=== PATIENT | male | born 1955 | race Caucasian/White ===

== ENCOUNTER 2019-01-16 17:58 | Emergency (ER) | payer OTHER ==
[~2019-01-16] VITALS: Ht 170.2 cm; Wt 69.4 kg
[2019-01-16] MEDS ORDERED: TENORMIN50 MG PO (18:13)
[2019-01-16] MEDS ORDERED: PROVENTIL HFA6.7 GM INH (19:01)
[2019-01-16] MEDS ORDERED: CIPRO HC OTIC S10 ML AS (19:01)
== END 2019-01-16 19:21 | disposition home or self-care (01) ==
LOC: ED 17:58
DX: H60.92 Unspecified otitis externa, left ear (principal); J44.0 Chronic obstructive pulmonary disease with (acute) lower respiratory infection; J20.9 Acute bronchitis, unspecified; F17.210 Nicotine dependence, cigarettes, uncomplicated; Z79.899 Other long term (current) drug therapy
CPT/HCPCS: 99282

== ENCOUNTER 2019-03-08 14:34 | Emergency (ER) | payer OTHER ==
[~2019-03-08] VITALS: Ht 170.2 cm; Wt 70.9 kg
[~2019-03-08 14:34] MED LIST: CIPRO HC OTIC S10 ML AS; PROVENTIL HFA6.7 GM INH; TENORMIN50 MG PO
[2019-03-08] MEDS ORDERED: ATENOLOL50 MG PO (15:30)
== END 2019-03-08 15:39 | disposition home or self-care (01) ==
LOC: ED 14:34
DX: I10 Essential (primary) hypertension (principal); J44.9 Chronic obstructive pulmonary disease, unspecified; F17.200 Nicotine dependence, unspecified, uncomplicated; Z79.899 Other long term (current) drug therapy
CPT/HCPCS: 99281

== ENCOUNTER 2019-04-03 18:53 | Emergency (ER) | payer OTHER ==
[~2019-04-03] VITALS: Ht 170.2 cm; Wt 70.8 kg
[~2019-04-03 18:53] MED LIST changes: +ATENOLOL50 MG PO
--- OUTSIDE RECORDS SUMMARY | 2019-04-03 18:56 | XMS ---
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 Care History Medical/Surgical 03/13/2019 [facility] - CHW RECEIVED- CASE MANAGEMENT CONSULT- HELP PATIENT WITH PCP SET UP. - CHW CONTACTED PATIENT- PATIENT FILLED OUT ESTRELLITA FORM WITH [facility]. - RECORDS RECEIVED ON 03/10/19- CURRENTLY WAITING ON REVIEW FROM DR LOJA TO ESTABLISH CARE. - CLINIC WILL CONTACT PATIENT WITH APT TIME AND DATE ONCE REVIEW IS COMPLETE. E.DTaniya VISIT COUNT (12 [address] 3 [facility] TOTAL 3 NOTE: Visits indicate total known visits. ED/UCC VISIT TRACKING (12 MO.) 04/03/2019 18:53 [facility] TYPE: Emergency COMPLAINT: - VOMITING BLOOD 03/08/2019 14:34 [facility] TYPE: Emergency COMPLAINT: - BLOOD PRESSURE PROBLEM DIAGNOSES: - Essential (primary) hypertension - Other skilled nursing (current) drug therapy - Encounter for issue of repeat prescription - Nicotine dependence, unspecified, uncomplicated - Chronic obstructive pulmonary disease, unspecified 01/16/2019 17:59 [facility] [place] TYPE: Emergency COMPLAINT: - L EAR PAIN,DIFFICULTY BREATHING DIAGNOSES: - Otalgia, left ear - Acute bronchitis, unspecified - Chronic obstructive pulmonary disease with acute lower respiratory infection - Nicotine dependence, cigarettes, uncomplicated - Unspecified otitis externa, left ear - Other oil heaterman (current) drug therapy INPATIENT VISIT TRACKING (12 MO.) No inpatient visits to display in this time frame [id number]
[2019-04-03] MEDS ORDERED: ATENOLOL50 MG PO (20:40)
== END 2019-04-03 20:47 | disposition home or self-care (01) ==
LOC: ED 18:53
DX: K92.0 Hematemesis (principal); I10 Essential (primary) hypertension; F17.200 Nicotine dependence, unspecified, uncomplicated; Z79.899 Other long term (current) drug therapy
CPT/HCPCS: 85025; 99284

== ENCOUNTER 2020-02-20 06:03 | Emergency (ER) | payer MEDICARE, OTHER ==
[~2020-02-20] VITALS: Ht 170.2 cm; Wt 69.4 kg
--- OUTSIDE RECORDS SUMMARY | 2020-02-20 06:08 | XMS ---
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 Care History Medical/Surgical 11/13/2019 [facility] - Patient is currently established with [facility]. If patient is seen in the ED during business hours. Please contact CHWs at [facility]. Care Recommendation: If this patient has had 5 or more Emergency Department visits in the last 12 months.\T\nbsp; Patient will require education on the scope and purpose of the ED as an acute care provider not a Primary Care Provider and should not be utilized for chronic conditions.\T\nbsp; These are guidelines and the provider should exercise clinical judgment when providing care. 04/04/2019 [facility] - PATIENT HAS AN APT TO ESTABLISH CARE WITH DR DE LOS SANTOS ON 04/25/19. 03/13/2019 [facility] - CHW RECEIVED- CASE MANAGEMENT CONSULT- HELP PATIENT WITH PCP SET UP. - CHW CONTACTED PATIENT- PATIENT FILLED OUT ESTRELLITA FORM WITH [facility]. - RECORDS RECEIVED ON 03/10/19- CURRENTLY WAITING ON REVIEW FROM DR LOJA TO ESTABLISH CARE. - CLINIC WILL CONTACT PATIENT WITH APT TIME AND DATE ONCE REVIEW IS COMPLETE. E.D. VISIT COUNT (12 MO.) [address] [facility] TOTAL 4 NOTE: Visits indicate total known visits. ED/UCC VISIT TRACKING (12 MO.) 02/20/2020 06:05 [facility] [place] TYPE: Emergency COMPLAINT: - CHEST PAIN/WEAKNESS 11/11/2019 07:12 [facility] [place] TYPE: Emergency COMPLAINT: - INTOXICATION DIAGNOSES: - Nicotine dependence, unspecified, uncomplicated - Other residential (current) drug therapy - Alcohol abuse with intoxication, unspecified - Chronic obstructive pulmonary disease, unspecified 04/03/2019 18:53 [facility] TYPE: Emergency COMPLAINT: - VOMITING BLOOD DIAGNOSES: - Other residential (current) drug therapy - Essential (primary) hypertension - Hematemesis - Nicotine dependence, unspecified, uncomplicated 03/08/2019 14:34 [facility] TYPE: Emergency COMPLAINT: - BLOOD PRESSURE PROBLEM DIAGNOSES: - Essential (primary) hypertension - Other residential (current) drug therapy - Encounter for issue of repeat prescription - Nicotine dependence, unspecified, uncomplicated - Chronic obstructive pulmonary disease, unspecified INPATIENT VISIT TRACKING (12 MO.) No inpatient visits to display in this time frame [id number]
[2020-02-20] MEDS ORDERED: PRILOSEC10 M1 PO (06:16)
[2020-02-20] MEDS ORDERED: CHLORDIAZEPOXID25 MG PO (07:47)
[2020-02-20] MEDS ORDERED: ONDANSETRON ODT8 MG PO (07:47)
--- NOTE | 2020-02-20 12:01 | EKG ---
[facility] [address] [facility] [place] [address] Signed Normal sinus rhythm Normal ECG No previous ECGs available Confirmed by RICHARD LOJA MD ([id number]) on 02/20/2020 12:00:57 PM Electronically Signed By: RICHARD LOJA MD 02/20/20 1201 PATIENT NAME: ANGELICA MUNOZ Electrocardiogram DATE OF : 59 PHYSICIAN: RICHARD LOJA MD REPORT #: [id number] REPORT IS CONFIDENTIAL AND NOT TO BE RELEASED WITHOUT AUTHORIZATION
== END 2020-02-20 10:18 | disposition home or self-care (01) ==
LOC: ED 06:03
DX: R55 Syncope and collapse (principal); F10.10 Alcohol abuse, uncomplicated; R20.2 Paresthesia of skin; J44.9 Chronic obstructive pulmonary disease, unspecified; I10 Essential (primary) hypertension; F17.200 Nicotine dependence, unspecified, uncomplicated
CPT/HCPCS: 71045; 80053; 84484; 85025; 93005; 93010; 96365; 96366; 96375; 99284-25; G0480; J2060; J3411; J7030

== ENCOUNTER 2021-12-09 21:00 | Inpatient (IN) | payer MEDICARE, OTHER ==
[~2021-12-09] VITALS: Ht 170.2 cm; Wt 70.0 kg
[~2021-12-09 21:00] MED LIST changes: +CHLORDIAZEPOXID25 MG PO; +ONDANSETRON ODT8 MG PO; +PRILOSEC10 M1 PO
--- NOTE | 2021-12-10 | NUR ---
PATIENT ASSESSMENT COMPLETE. PATIENT ALERT AND ORIENTED X4. HARD OF HEARING. CIWA COMPLETE. SCORE OF 4. LUNG SOUNDS ARE COURSE IN THE UPPER LOBES AND DIMINISHED IN BASES. PATIENT ON 4 LITERS OF OXYGEN. RR IS 18-25. OXYGEN SATURATIONS BETWEEN 90-98%. BREATHING EQUAL AND UNLABORED. HEART RATE 70-80 BPM. SINUS RHYTHM. AFEBRILE. URINE IS YELLOW AND CONCENTRATED. NO BM. BOWEL TONES ACTIVE. PATIENT COMPLAINS OF NUMBNESS & TINGLING IN LOWER EXTERMITIES. SKIN INTACT. IV SITES PATENT. REMDESIVIR RUNNING AT 500 MLS/HR. NO QUESTIONS AT THIS TIME. CALL LIGHT WITHIN REACH. NO FUTHER NEEDS.
--- NOTE | 2021-12-10 01:35 | NUR ---
IV PUMP ALARMING, THIS RN IN. PT LAYING IN BED ON HIS SIDE, 4L O2 NC SLEEPING AT THIS TIME. PT AWOKE EASILY AND REPORTED NO NEEDS. IV REMDESIVIR COMPLETE, PT SALINE LOCKED. WILL CONTINUE PLAN OF CARE.
--- NOTE | 2021-12-10 02:00 | NUR ---
PATIENT RESTING IN BED. CIWA SCORE OF 6. SCHEDULED VALIUM 10 MG IV GIVEN. PATIENT ON 4 LITERS NASAL CANNULA. OXYGEN SATURATIONS 90-96%. RR 18-20. BREATHING EQUAL AND UNLABORED. CALL LIGHT WITHIN REACH NO FUTHER NEEDS.
--- NOTE | 2021-12-10 03:00 | NUR ---
PATIENT ASLEEP IN BED. PATIENT ON 4 LITERS NASAL CANNULA. RR 18-20. OXYGEN SATURATIONS 95-07%. BREATHING EQUAL AND UNLABORED. CALL LIGHT WITHIN REACH.
--- NOTE | 2021-12-10 04:30 | NUR ---
PATIENT ASSESSMENT COMPLETE. PATIENT ALERT AND ORIENTED X4. PATIENT IS DIAPHORETIC. LUNG SOUNDS ARE COURSE IN THE UPPER LOBES AND DIMINISHED IN THE BASES. RR 18-20 AND OXYGEN SATURATIONS 95-97%. OXYGEN AT 2 LITERS NASAL CANNULA. HEART RATE 50-60 BPM. AFEBRILE. NO URINE. NO BM. BOWEL TONES ACTIVE. SKIN INTACT. IV SITES PATENT. PATIENT DENIES NASE[place], VOMITING, PAIN OR SOB. CALL LIGHT WITHIN REACH NO FUTHER NEEDS.
--- NOTE | 2021-12-10 06:00 | NUR ---
PATIENT RESTING IN BED. OXYMASK AT 4 LITERS. OXYGEN SATURATIONS ARE 90-95%. RR IS 18-25. BREATHING EQUAL AND UNLABORED. DENIES FEELING ANXIOUS OR IN ANY PAIN. CALL LIGHT WITHIN REACH NO FUTHER NEEDS.
[2021-12-10] MEDS ORDERED: OMEPRAZOLE20 MG PO (07:30)
--- NOTE | 2021-12-10 07:38 | NUR ---
Report received, care of PT assumed at this time.
--- NOTE | 2021-12-10 08:25 | NUR ---
VITALS CHARTED. PATIENT RESTING IN BED, WOKE TO VOICE, NC IN PLACE. BREAKFAST AT SIDE TABLE. NO OTHER NEEDS AT THIS TIME.
--- NOTE | 2021-12-10 09:44 | NUR ---
PT ASSESSMENT AND MEDICATION ADMINISTRATION COMPLETED. PT DIAPHORETIC AND TREMULOUS. PRN AND SCHEDULED DIAZEPAM ADMINSTERED (SEE EMAR). PT AMBULATED TO BATHROOM, REFUSED TO WEAR OXYGEN, AFTER APPROX. THREE MINUTES ON ROOM AIR WITH ACTIVITY, PT SPO2 =89 TO 92 PERCENT. LUNGS SOUND CLEAR AND DIM IN BOTH BASES. RESPIRATIONS EVEN AND UNLABORED. REMDESIVIR INFUSING. DAUGHTER, WHO IS PT'S CAREGIVER IS NOW AT PT BEDSIDE. PLAN OF CARE FOR DAY ESTABLISHED. ALL QUESTIONS ANSWERED. WILL CONTINUE TO MONITOR.
--- NOTE | 2021-12-10 10:30 | NUR ---
IN ROOM TO REASSESS PT AT THIS TIME. PT RESTING ON LEFT SIDE SPO2 = 96% ON 2 L NC. PT SLEEPING, NO VISIBLE TREMORS BUT FELT. PT STATES HE IS FEELING LESS TREMULOUS AND DENIES NEEDS AT THIS TIME. CIWA ASSESSMENT COMPLETED. THIS RN WILL CONTINUE TO MONITOR.
--- NOTE | 2021-12-10 12:21 | NUR ---
IN ROOM TO COMPLETE ASSESSMENT PT CONTINUES TO HAVE FAIRLY SIGNIFICANT TREMORS. AMBULATED TO BATHROOM. UNSTEADY ON FEET. ONE PERSON ASSIST REQUIRED. PT LESS DIAPHORETIC THAN EARLIER. DENIES HEADACHES OR VISUAL DISTURBANCES. PT HAD ANOTHER LIQUID STOOL AND UNMEASURED VOID. BACK IN BED. CALL LIGHT WITHIN REACH. WILL CONTINUE TO CLOSELY MONITOR.
--- NOTE | 2021-12-10 12:47 | NUR ---
PATIENT SBA FROM BATHROOM TO BED FOR VITALS. PERSONAL PHONE ASSOCIATE PROFESSOR OF LITERATURE PLUGGED IN TO CHARGE HIS PHONE. FRESH ICE WATER PROVIDED. VITALS AND I&OS CHARTED. CALL LIGHT IN EASY REACH
--- NOTE | 2021-12-10 13:51 | NUR ---
PT DIAPHORETIC. SPO2 = 88% ON ROOM AIR. PLACED BACK ON 3 L NC AT THIS TIME. PT STATES "IM FREEZING" ORAL TEMP OF 98.5, PROVIDED EDUCATION ABOUT COVID AND ETOH WITHDRAWAL AT THIS TIME. PT NOW IN SIDE LAYING POSITION. RESPIRATIONS IN THE LOW 30S. SPO2 = 92 ON 3 L NC. CALL LIGHT WITHIN REACH. WILL CONTINUE TO MONITOR.
--- NOTE | 2021-12-10 15:18 | NUR ---
WARM BLANKET PROVIDED, CALL LIGHT IN REACH
--- NOTE | 2021-12-10 15:36 | NUR ---
ASSESSMENT COMPLETED. PT COMPLAINS OF RIGHT EAR PAIN, WARM PACK APPLIED. TREMORS AT REST HAVE DECREASED, PT DENIES HEADACHE OR OTHER SYMPTOMS, BUT DOES APPEAR AGGITATED. BLOOD PRESSURE IN THE 170S SYSTOLICALLY. PT COMPLAINS OF BEING COLD. ORAL TEMP 98.5. WARM BLANKETS PROVIDED AND HEAT TURNED UP IN ROOM. LUNGS SOUND COARSE AND DIM. SPO2 = 93% ON 3 L NC. CALL LIGHT WITHIN REACH
--- NOTE | 2021-12-10 16:10 | NUR ---
DR PATRICIA UPDATED ON PT'S RIGHT EAR PAIN AND DT'S.
--- NOTE | 2021-12-10 16:19 | NUR ---
Update from RN. Pt on . Monitoring for DTS. Pt taking valium for withdrawal. Will remain in CCU, no plan for discharge at this time.
--- NOTE | 2021-12-10 17:02 | NUR ---
PT COMPLAINS OF TREMORS, ORAL PRN VALIUM GIVEN AT THIS TIME. IV ABX INFUSING. CALL LIGHT WITHIN REACH. WILL CONTINUE TO MONITOR.
--- NOTE | 2021-12-10 18:12 | NUR ---
abx completed. PT sleeping soundly on right side. spo2 = 93% on 3 L. Respiratory rate in the mid 20s. Call light within reach. Will continue to monitor.
--- NOTE | 2021-12-10 18:45 | NUR ---
PT AMBULATED TO BATHROOM ON ROOM AIR. SPO2 = 90% WITH AMBULATION AND EXERTION. HEART RATE UP INTO THE 110S WITH ACTIVITY; BACK DOWN TO 80 WITH REST. PT NOW BACK ON 3 L NC WHILE RESTING. CALL LIGHT WITHIN REACH. NO FURTHER NEEDS AT THIS TIME.
--- NOTE | 2021-12-10 19:32 | NUR ---
REPORT RECEIVED FROM ASHLEY RN, WILL CONTINUE PLAN OF CARE.
--- NOTE | 2021-12-10 20:15 | NUR ---
CALL LIGHT USED, PT SITTING UP IN BED ON 3L O2 NC, SPO2 92-95%. PT ALERT AND ORIENTED X4 AND REPORTS HIS BREATHING FEELS LABORED, PT'S DAUGHTER IN ROOM AND REPORTS PT SEEMS IF HE IS GASPING. PT BREATHING NOTED TO BE LABORED AT THIS TIME. PT SAT UP IN BED, LUNGS AUSCULTATED AND ARE COARSE THROUGHOUT UPPER LOBES BILATERALLY AND DIMINISHED IN THE BASES BILATERALLY. PT TREMORS MILD AT THIS TIME, SLIGHTLY DIAPHORETIC, MILDLY ANXIOUS AND AGITATED, CIWA 6. SCHEDULED PO VALIUM ADMINISTERED AT THIS TIME. PT VITALS TAKEN AND ASSESSMENT COMPLETED (SEE DEC). PT REPORTS NO FURTHER NEEDS AND REPORTED USING THE BATHROOM PRIOR TO THIS RN ARRIVING AND STATES HE HAD VOIDED. PT NOW RESTING IN BED, PT'S DAUGHTER AT THE BEDSIDE, NO FURTHER NEEDS ASSESSED, WILL CONTINUE PLAN OF CARE. CALL LIGHT IN REACH, BED IN LOWEST POSITION, SPO2 93% ON 3L O2 NC.
--- NOTE | 2021-12-10 21:20 | NUR ---
PT WAS USING THE BATHROOM AND REPORTED HAVING A BM AND VOID. PT ABLE TO WALK BACK TO THE BED WITHOUT ASSISTANCE AND REPOSITION HIMSELF. PT ON ROOM AIR AT THAT TIME, SPO2 WAS AT 88%, HR INCREASED TO 100'S WHILE WALKING BUT DECREASED BACK TO THE 70'S ONCE AT REST. PT NOTED TO BE LESS AGITATED AT THIS TIME, TREMORS HAVE DECREASED, PT DENIES HAVING ANY AUDITORY OR VISUAL DISTURBANCES/HALLUCINATIONS. PT PLACED BACK ON 3L O2 NC, SPO2 NOW 92%. PT REPORTS NO FURTHER NEEDS AT THIS TIME AND DENIES FEELING RESTLESS OR AGITATED AT THIS TIME. DAUGHTER IN ROOM WITH PT, WILL CONTINUE PLAN OF CARE. CALL LIGHT IN REACH, BED IN LOWEST POSITION.
--- NOTE | 2021-12-10 22:08 | EKG ---
[facility] [address] [place] [address] S[address] Sinus tachy[address] Nonspecific ST abnormality Abnormal ECG When compared with ECG of 20-FEB-2020 06:30, Vent. rate has increased BY 62 BPM Confirmed by TERA PATRICIA MD ([id number]) on 12/10/2021 8:23:02 PM Electronically Signed By: TERA PATRICIA MD 12/10/212199 Electronically Signed By: TERA PATRICIA MD 12/10/212199 Electronically Signed By: TERA PATRICIA MD 12/10/212199 Electronically Signed By: TERA PATRICIA MD 12/10/212199 Electronically Signed By: TERA PATRICIA MD 12/10/212199 Electronically Signed By: TERA PATRICIA MD 12/10/212199 Electronically Signed By: TERA PATRICIA MD 12/10/212199 Electronically Signed By: TERA PATRICIA MD 12/10/212199 Electronically Signed By: TERA PATRICIA MD 12/10/212199 Electronically Signed By: TERA PATRICIA MD 12/10/212199 Electronically Signed By: TERA PATRICIA MD 12/10/212199 Electronically Signed By: TERA PATRICIA MD 12/10/212199 Electronically Signed By: TERA PATRICIA MD 12/10/212199 Electronically Signed By: TERA PATRICIA MD 12/10/212199 Electronically Signed By: TERA PATRICIA MD 12/10/212199 Electronically Signed By: TERA PATRICIA MD 12/10/212199 Electronically Signed By: TERA PATRICIA MD 12/10/212199 Electronically Signed By: TERA PATRICIA MD 12/10/212200 Electronically Signed By: TERA PATRICIA MD 12/10/212200 Electronically Signed By: TERA PATRICIA MD 12/10/212200 Electronically Signed By: TERA PATRICIA MD 12/10/212200 Electronically Signed By: TERA PATRICIA MD 12/10/212200 Electronically Signed By: TERA PATRICIA MD 12/10/212200 Electronically Signed By: TERA PATRICIA MD 12/10/212200 Electronically Signed By: TERA PATRICIA MD 12/10/212200 Electronically Signed By: TERA PATRICIA MD 12/10/212200 Electronically Signed By: TERA PATRICIA MD 12/10/212200 Electronically Signed By: TERA PATRICIA MD 12/10/212200 Electronically Signed By: TERA PATRICIA MD 12/10/212200 Electronically Signed By: TERA PATRICIA MD 12/10/212200 Electronically Signed By: TERA PATRICIA MD 12/10/212200 Electronically Signed By: TERA PATRICIA MD 12/10/212200 Electronically Signed By: TERA PATRICIA MD 12/10/212200 Electronically Signed By: TERA PATRICIA MD 12/10/212201 Electronically Signed By: TERA PATRICIA MD 12/10/212201 Electronically Signed By: TERA PATRICIA MD 12/10/212201 Electronically Signed By: TERA PATRICIA MD 12/10/212201 Electronically Signed By: TERA PATRICIA MD 12/10/212201 Electronically Signed By: TERA PATRICIA MD 12/10/212201 Electronically Signed By: TERA PATRICIA MD 12/10/212201 Electronically Signed By: TERA PATRICIA MD 12/10/212201 Electronically Signed By: TERA PATRICIA MD 12/10/212201 Electronically Signed By: TERA PATRICIA MD 12/10/212201 Electronically Signed By: TERA PATRICIA MD 12/10/212201 Electronically Signed By: TERA PATRICIA MD 12/10/212201 Electronically Signed By: TERA PATRICIA MD 12/10/212201 Electronically Signed By: TERA PATRICIA MD 12/10/212201 Electronically Signed By: TERA PATRICIA MD 12/10/212201 Electronically Signed By: TERA PATRICIA MD 12/10/212201 Electronically Signed By: TERA PATRICIA MD 12/10/212202 Electronically Signed By: TERA PATRICIA MD 12/10/212202 Electronically Signed By: TERA PATRICIA MD 12/10/212202 Electronically Signed By: TERA PATRICIA MD 12/10/212202 Electronically Signed By: TERA PATRICIA MD 12/10/212202 Electronically Signed By: TERA PATRICIA MD 12/10/212202 Electronically Signed By: TERA PATRICIA MD 12/10/212202 Electronically Signed By: TERA PATRICIA MD 12/10/212202 Electronically Signed By: TERA PATRICIA MD 12/10/212202 Electronically Signed By: TERA PATRICIA MD 12/10/212202 Electronically Signed By: TERA PATRICIA MD 12/10/212202 Electronically Signed By: TERA PATRICIA MD 12/10/212202 Electronically Signed By: TERA PATRICIA MD 12/10/212202 Electronically Signed By: TERA PATRICIA MD 12/10/212202 Electronically Signed By: TERA PATRICIA MD 12/10/212202 Electronically Signed By: TERA PATRICIA MD 12/10/212202 Electronically Signed By: TERA PATRICIA MD 12/10/212203 Electronically Signed By: TERA PATRICIA MD 12/10/212203 Electronically Signed By: TERA PATRICIA MD 12/10/212203 Electronically Signed By: TERA PATRICIA MD 12/10/212203 Electronically Signed By: TERA PATRICIA MD 12/10/212203 Electronically Signed By: TERA PATRICIA MD 12/10/212203 Electronically Signed By: TERA PATRICIA MD 12/10/212203 Electronically Signed By: TERA PATRICIA MD 12/10/212203 Electronically Signed By: TERA PATRICIA MD 12/10/212203 Electronically Signed By: TERA PATRICIA MD 12/10/212203 Electronically Signed By: TERA PATRICIA MD 12/10/212203 Electronically Signed By: TERA PATRICIA MD 12/10/212203 Electronically Signed By: TERA PATRICIA MD 12/10/212203 Electronically Signed By: TERA PATRICIA MD 12/10/212203 Electronically Signed By: TERA PATRICIA MD 12/10/212203 Electronically Signed By: TERA PATRICIA MD 12/10/212204 Electronically Signed By: TERA PATRICIA MD 12/10/212204 Electronically Signed By: TERA PATRICIA MD 12/10/212204 Electronically Signed By: TERA PATRICIA MD 12/10/212204 Electronically Signed By: TERA PATRICIA MD 12/10/212204 Electronically Signed By: TERA PATRICIA MD 12/10/212204 Electronically Signed By: TERA PATRICIA MD 12/10/212204 Electronically Signed By: TERA PATRICIA MD 12/10/212204 Electronically Signed By: TERA PATRICIA MD 12/10/212204 Electronically Signed By: TERA PATRICIA MD 12/10/212204 Electronically Signed By: TERA PATRICIA MD 12/10/212204 Electronically Signed By: TERA PATRICIA MD 12/10/212204 Electronically Signed By: TERA PATRICIA MD 12/10/212204 Electronically Signed By: TERA PATRICIA MD 12/10/212204 Electronically Signed By: TERA PATRICIA MD 12/10/212204 Electronically Signed By: TERA PATRICIA MD 12/10/212205 Electronically Signed By: TERA PATRICIA MD 12/10/212205 Electronically Signed By: TERA PATRICIA MD 12/10/212205 Electronically Signed By: TERA PATRICIA MD 12/10/212205 Electronically Signed By: TERA PATRICIA MD 12/10/212205 Electronically Signed By: TERA PATRICIA MD 12/10/212205 Electronically Signed By: TERA PATRICIA MD 12/10/212205 Electronically Signed By: TERA PATRICIA MD 12/10/212205 Electronically Signed By: TERA PATRICIA MD 12/10/212205 Electronically Signed By: TERA PATRICIA MD 12/10/212205 Electronically Signed By: TERA PATRICIA MD 12/10/212205 Electronically Signed By: TERA PATRICIA MD 12/10/212205 Electronically Signed By: TERA PATRICIA MD 12/10/212205 Electronically Signed By: TERA PATRICIA MD 12/10/212205 Electronically Signed By: TEAR PATRICIA MD 12/10/212205 Electronically Signed By: TERA PATRICIA MD 12/10/212206 Electronically Signed By: TERA PATRICIA MD 12/10/212206 Electronically Signed By: TERA PATRICIA MD 12/10/212206 Electronically Signed By: TERA PATRICIA MD 12/10/212206 Electronically Signed By: TERA PATRICIA MD 12/10/212206 Electronically Signed By: TERA PATRICIA MD 12/10/212206 Electronically Signed By: TERA PATRICIA MD 12/10/212206 Electronically Signed By: TERA PATRICIA MD 12/10/212206 Electronically Signed By: TERA PATRICIA MD 12/10/212206 Electronically Signed By: TERA PATRICIA MD 12/10/212206 Electronically Signed By: TERA PATRICIA MD 12/10/212206 Electronically Signed By: TERA PATRICIA MD 12/10/212206 Electronically Signed By: TERA PATRICIA MD 12/10/212206 Electronically Signed By: TERA PATRICIA MD 12/10/212206 Electronically Signed By: TERA PATRICIA MD 12/10/212206 Electronically Signed By: TERA PATRICIA MD 12/10/212207 Electronically Signed By: TERA PATRICIA MD 12/10/212207 Electronically Signed By: TERA PATRICIA MD 12/10/212207 Electronically Signed By: TERA PATRICIA MD 12/10/212207 Electronically Signed By: TERA PATRICIA MD 12/10/212207 Electronically Signed By: TERA PATRICIA MD 12/10/212207 Electronically Signed By: TERA PATRICIA MD 12/10/212207 Electronically Signed By: TERA PATRICIA MD 12/10/212207 Electronically Signed By: TERA PATRICIA MD 12/10/212207 Electronically Signed By: TERA PATRICIA MD 12/10/212207 Electronically Signed By: TERA PATRICIA MD 12/10/212207 Electronically Signed By: TERA PATRICIA MD 12/10/212207 Electronically Signed By: TERA PATRICIA MD 12/10/212207 Electronically Signed By: TERA PATRICIA MD 12/10/212207 PATIENT NAME: TAMMYANGELICA IVETH Electrocardiogram DATE OF : 59 PHYSICIAN: TERA PATRICIA MD REPORT #: [id number] REPORT IS CONFIDENTIAL AND NOT TO BE RELEASED WITHOUT AUTHORIZATION
--- NOTE | 2021-12-10 23:03 | NUR ---
RESPONDED TO PT CALL LIGHT. PT STATES HE NEEDS TO HAVE A BM. PT ASSISTED UP OUT OF BED AND WAS ABLE TO WALK TO THE BATHROOM, GAIT UNSTEADY, THIS RN STANDBY ASSIST. PT HAD X1 VOID AND A LIQUID BM. PT REQUESTED MEDICATION FOR HIS DIARRHEA. PT ABLE TO GET BACK INTO BED, SPO2 92% ON ROOM AIR BUT WAS PLACED BACK ON 3L O2 NC. SPO2 MAITNIANG 93-95%. CIWA OF 8 OBTAINED FOR TREMORS, MILD ANXIETY, RESTLESSNESS, MILD AGITATION, AND SOME REPORTED NUMBNESS/TINGLING. PRN IV VALIUM 5MG ADMINISTERED. PT PROVIDED WITH ICE WATER AND A CLEAR ENSURE AT THIS TIME AND IS NOW RESTING IN BED. PT REPORTS NO FURTHER NEEDS, CALL LIGHT IN REACH, BED IN LOWEST POSITION. DR. PATRICIA NOTIFIED AFTERWARDS ON PT'S BOUTS OF DIARRHEA, NEW ORDERS TO BE PLACED, WILL CONTINUE PLAN OF CARE.
--- NOTE | 2021-12-10 23:32 | NUR ---
PT SITTING UP IN BED AWAKE AND ALERT ON 3L O2 NC. CIWA OF 2 SCORED FOR TREMORS. PT CALM, NOT DIAPHORETIC, AND REPORTS NO NUMBNESS OR TINGLING AT THIS TIME. PRN LOPERAMIDE ADMINISTERED AT THIS TIME FOR PT'S DIARRHEA. (SEE MAR) VS THEN TAKEN AND PT ASSESSMENT COMPLETED (SEE CHART). PT REPORTS NO FURTHER NEEDS AT THIS TIME AND IS RESTING IN BED WATCHING TV. PT ON3L O2 NC, SPO2 91-93%, CALL LIGHT IN REACH, BED IN LOWEST POSITION, WILL CONTINUE PLAN OF CARE.
--- NOTE | 2021-12-11 01:09 | NUR ---
CALL LIGHT USED BY PT. PT STATED HE NEEDED TO VOID AT THIS TIME. URINAL PROVIDED TO PT AT THIS TIME. PT ATTEMPTED TO VOID BUT WAS UNABLE TO . PT NOW DRINKING WATER AND STATES HE WILL TRY TO URINATE LATER. PT SITTING UP AT THE SIDE OF THE BED ALERT AND ORIENTED, 3L O2 NC, SPO2 90-93%. PT REPORTS NO FURTHER NEEDS AT THIS TIME AND STATES HE WILL RETURN BACK TO SLEEP ONCE HE HAS VOIDED. CALL LIGHT IN REACH, BED IN LOWEST POSITION, URINAL AT THE BEDSIDE WITHIN REACH, WILL CONTINUE PLAN OF CARE.
--- NOTE | 2021-12-11 01:25 | NUR ---
PT NOW RESTING IN BED AT THIS TIME ON 3L O2 NC, SPO2 93-98%. PT STATES HE WAS UNABLE TO VOID BUT WILL TRY LATER. PT LAYING IN BED WATCHING TV AND REPORTS NO FURTHER NEEDS WHEN ASKED, WILL CONTINUE PLAN OF CARE. CALL LIGHT IN REACH, BED IN LOWEST POSITION.
--- NOTE | 2021-12-11 01:51 | NUR ---
PT CALL LIGHT USED, PT REPORTS TREMORS AND APPEARS ANXIOUS AND RESTLESS, CIWA 8. 5MG PRN VALIUM ADMINISTERED AT THIS TIME (SEE MAR). PT IN BED ON 3L O2 NC, SPO2 92-95%. PT PROVIDED WITH ICE WATER AT THIS TIME. PT REPORTS NO FURTHER NEEDS WHEN ASKED AND IS NOW RESTING IN BED WATCHING TV. WILL CONTINUE PLAN OF CARE. CALL LIGHT IN REACH, BED IN LOWEST POSITION.
--- NOTE | 2021-12-11 02:50 | NUR ---
PT IN THE BATHROOM AND WAS ABLE TO HAVE A BM AND VOID 275ML. PT ABLE TO WALK BACK TO BED WHILE ON 3L O2 NC, SPO2 92-95%. PT HAS NO SIGNS OF AGITATION AT THIS TIME, MINIMAL TREMORS NOTED IN HANDS. PT NOW SITTING UP IN BED WATCHING TV AND REPORTS NO FURTHER NEEDS. CALL LIGHT IN REACH, BED IN LOWEST POSITION, WILL CONTINUE PLAN OF CARE.
--- NOTE | 2021-12-11 03:53 | NUR ---
PT LAYING IN BED ON HIS RIGHT SIDE SLEEPING AT THIS TIME ON 3L O2 NC, SPO2 94%. RESPIRATIONS NTOED AND ARE 22, PT IN NO APPARENT DISTRESS AT THIS TIME AND WAS LEFT UNDISTURBED. WILL CONTINUE PLAN OF CARE. CALL LIGHT IN REACH, BED IN LOWEST POSITION.
--- NOTE | 2021-12-11 05:20 | NUR ---
PT SITTING UP AT THE SIDE OF THE BED ALERT AND ORIENTED X4. PT CIWA 1 WITH MILD TREMORS FELT BUT NOT VISIBLE IN HANDS. PT HAD JUST FINISHED WALKING BACK FROM THE BATHROOM AND HAD VOIDED 300ML AND HAD A LIQUID BM. PT NOW RESTING IN BED AND WAS PUT ON 2L O2 NC, SPO2 95%. VITALS TAKEN AND ASSESSMENT COMPLETED (SEE CHART). 10MG SCHEDULED VALIUM ADMINISTERED PO (SEEMAR). COMPUTER NUMERICAL CONTROL OPERATOR NOW IN TO DRAW PT'S LABS. PT REPORTS NO FURTHER NEEDS AT THIS TIME, CALL LIGHT IN REACH, BED IN LOWEST POSITION, WILL CONTINUE PLAN OF CARE.
--- NOTE | 2021-12-11 06:10 | NUR ---
DR. PATRICIA NOTIFIED OF PT'S CRITICAL PHOSPHOROUS OF 1.0 AND POTASSIUM OF 2.7. WILL CONTINUE PLAN OF CARE.
--- NOTE | 2021-12-11 06:15 | NUR ---
PT SITTING UP IN BED WATCHING TV ON 2L O2 NC. SPO2 94%. PT IN NO APPARENT DISTRESS AT THIS TIME AND WAS LEFT UNDISTURBED, WILL CONTINUE PLAN OF CARE. CALL LIGHT IN REACH, BED IN LOWEST POSITION.
--- NOTE | 2021-12-11 07:48 | NUR ---
Report recieved, care of PT assumed at this time. pt resting in bed, respirations even and unlabored. denies pain or discomfort. spo2 = 95% on room air. IV potassium phos now infusing (see emar). Plan of care for day established. call light within reach. Will continue to monitor.
--- NOTE | 2021-12-11 08:11 | NUR ---
VITALS CHARTED, ROOM TIDIED. CALL LIGHT IN EASY REACH
--- NOTE | 2021-12-11 08:45 | NUR ---
THIS RN IN TO GIVE MONRING MEDICATIONS FOR ANNA SHANKAR. PATIENT RESTING IN BED AT THIS TIME. PATIENT EDUCATED ON MEDICATIONS. ALL QUESTIONS ANSWERED. ANNA SHANKAR STARTED ANOTHER IV D/T MULTIPLE IV MEDICATIONS AND NON-COMPATIBLE MEDICATIONS. PATIENT DENIES ANY OTHER NEEDS AT THIS TIME. CALL LIGHT IN REACH. WILL CONTINUE TO CLOSELY MONITOR.
--- NOTE | 2021-12-11 09:42 | NUR ---
THIAMINE NOW INFUSING. PT ADVANCED TO A REGULAR DIET PER DR PATRICIA VERBAL ORDER. CIWA OF 6 AT THIS TIME. PT DENIES THE NEED FOR PRN VALIUM AT THIS TIME. CALL LIGHT WITHIN REACH. WILL CONTINUE TO MONITOR.
--- NOTE | 2021-12-11 10:45 | NUR ---
PT HAVING DIFFICULTY FEEDING SELF BECAUSE OF SEVERE TREMORS IN BILATERAL ARMS. PRN VALIUM GIVEN AT THIS TIME (SEE EMAR). IV MEDICAITONS CONTINUE TO INFUSE. WILL CONTINUE TO MONITOR.
--- NOTE | 2021-12-11 11:45 | NUR ---
POTASSIUM NOW INFUSING. PT STATES TREMORS IN ARMS HAVE DECREASED SINCE MEDICATION ADMINISTRATION. DAUGHTER NOW AT BEDSIDE WITH PT. CALL LIGHT WITHIN REACH. DENIES FURTHER NEEDS AT THIS TIME.
--- NOTE | 2021-12-11 12:39 | NUR ---
ASSESSMENT COMPLETED, NO SIGNIFICANT CHANGES NOTED. PT NOW RESTING IN BED WATCHING TV. PT AND DAUGHTER PROVIDED EDUCATION AND RESOURCES RELATED TO ALCOHOL WITHDRAWAL, BOTH VERBALIZE AND UNDERSTANDING OF THE PLAN OF CARE. CALL LIGHT WITHIN REACH. DENIES FURTHER NEEDS AT THIS TIME.
--- NOTE | 2021-12-11 13:35 | NUR ---
VITALS CHARTED. FRESH ICE WATER PROVIDED. NO OTHER NEEDS AT THIS TIME
--- NOTE | 2021-12-11 14:44 | NUR ---
PT INCONTINENT OF URINE. ASSISTED PT WITH PERICARE AND CHANGING CLOTHES. PT NOW RESTING IN BED. HEART RATE IN THE 70S. SPO2 = 94% ON ROOM AIR. REMAINS ALERT AND ORIENTED X 4. CIWA SCORE OF 6 AT THIS TIME. CALL LIGHT WITHIN REACH. DENIES FURTHER NEEDS AT THIS TIME..
--- NOTE | 2021-12-11 16:30 | NUR ---
ASSESSMENT COMPLETED. PT REMAINS ALERT AND ORIENTED. STEADY ON FEET WITH AMBULATION. HEART RATE 70-80 AT REST. SPO2 = 92% ON ROOM AIR. PT DENIES PAIN OR DISCOMFORT AT THIS TIME. CALL LIGHT WITHIN REACH. WILL CONTINUE TO MONITOR.
--- NOTE | 2021-12-11 17:01 | NUR ---
PT UPDATED ON PLAN TO MOVE PT TO THE MEDICAL FLOOR. ADVICE CLERK DC'D AT THIS TIME. ALL PT QUESTIONS ANSWERED.
--- NOTE | 2021-12-11 17:19 | NUR ---
REPORT GIVEN TO MED SURG NURSE DUTCH. PT TRANSPORTED VIA HOSPITAL BED BY THIS RN.
--- NOTE | 2021-12-11 17:19 | NUR ---
Update from Rn, pt off o2, daughter would like assist with alcohol treatment for dad. Will speak with daughter and pt tomorrow about [facility].
--- NOTE | 2021-12-11 17:55 | NUR ---
REPORT RECEIVED FROM CCU RN AND PT ARRIVED VIA WHEELCHAIR. HE IS ALERT TO ALL BUT DATE. CIWA SCORE OF 4 WITH HUMMING IN EARS AND SLIGHT TREMOR. PT. DENIES PAIN. LAC IV REMOVED AND WAS LEAKY AND PAINFUL. DISCUSSED WITH PT. SAFETY AND POC. LEFT RESTING WITH CALL LIGHT IN REACH.
--- NOTE | 2021-12-11 19:10 | NUR ---
IN TO PT WITH ENSURE, DAUGHTER IN RM
--- NOTE | 2021-12-11 19:15 | NUR ---
SHIFT REPORT RECEIVED FROM DAYSHIFT RN DUTCH. pt AWAKE AND RESTING IN BED, DAUGHTER ALSO IN ROOMA [place] IS pt's CAREGIVER AT HOME. DAUGHTER REPORTS SHE HASN'T BEEN UPDATED ON pt FOR "A DAY IN A HALF". BRIEF UPDATE PROVIDED, WILL ANSWER ADDITIONAL QUESTIONS WITH EVENING ASSESSMENT AND MED PASS. CALL LIGHT IN REACH.
--- NOTE | 2021-12-11 20:05 | NUR ---
ASSESSMENT COMPLETE, SCHEDULED MEDS GIVEN ALONG WITH PO VALIUM FOR CIWA SCORE OF 8, D/T INCREASED FEELINGS OF ANXIETY. pt A/O AND COMPLIANT WITH CARE, SBA WITH AMBULATION. MILD TREMORS NOTED IN HANDS, BED ALARM ON FOR SAFETY. pt VERBALIZED UNDERSTANDING TO USE CALL LIGHT BEFORRE GETTING OOB, DAUGHTER REMAINS IN ROOM. IV SITES X2 WNL. VSS, I&O'S COMPLETE. FRESH WATER PROVIDED. CPOX ON D/T COVID STATUS.
--- NOTE | 2021-12-11 21:38 | NUR ---
BED ALARM GOING OFF, pt SITTING ON EDGE OF BED. DENEIS NEEDS. RR EVEN AND UNLABORED, SPO2 LOW TO MID 90'S. BED ALARM NOW ON LEAST SENSITIVE. NO FURTHER NEEDS, CALL LIGHT REMAINS IN REACH.
--- NOTE | 2021-12-11 22:50 | NUR ---
IN TO ASSIST PT TO THE BATHROOM, PT BACK TO BED, NO FURTHER NEEDS AT THIS TIME
--- NOTE | 2021-12-11 23:15 | NUR ---
ROUNDED ON pt, pt RESTING IN BED FACING WINDOW. RR EVEN AND UNLABORED, ON RA. SPO2 ABOVE 90. NO DISTRESS OR S/SX OF ANXIETY NOTED, WILL MONITOR. pt COVID +, CIWA SCORE DONE IN HALLWAY TO ALLOW pt TO REST.
--- NOTE | 2021-12-12 01:12 | NUR ---
ROUNDED ON pt, pt AWAKE AND RESTING IN BED. PILOT PLANT OPERATOR NICKI COMING OUT OF ROOM, PER RN- pt RECENTLY UP TO VOID. BED ALARM BACK ON AND CALL LIGHT IN REACH.
--- NOTE | 2021-12-12 02:30 | NUR ---
IN TO GET VITALS FOR RN, PT IS RESTING WELL, AWAKES TO VOICE, SLEEPS THROUGH VITALS, NO FURTHER NEEDS AT THIS TIME
--- NOTE | 2021-12-12 02:30 | NUR ---
pt RESTING IN BED, DAVID KLINE RECENTLY COLLECTED VS. VSS, SBP ELEVATED BUT WITHIN PARAMETERS. WILL CONITNUE TO MONITOR. NO S/SX OF ANXIETY OR DISTRESS NOTED. BED ALARM REMAINS ON AND CALL LIGHT IN REACH. PARTS OF CIWA ASSESSMENT DEFERRED TO ALLOW pt TO REST.
--- NOTE | 2021-12-12 03:10 | NUR ---
IN TO ASSIST PT TO THE TOILET AND BACK, x1 VOID, BED ALARM IN PLACE
--- NOTE | 2021-12-12 05:00 | NUR ---
pt RESTING IN BED WITH EYES CLOSED, RR EVEN AND UNLABORED. NO DISTRESS NOTED. pt AWOKE TO VOICE, DENIES PAIN AND NAUSEA. NO TREMORS NOTED, pt REPORTS HUMMING IN EARS IS "BETTER". pt FULLY A/O AT THIS TIME, HAS BEEN CALLING APPROPRIATELY FOR MOST OF SHIFT. BED ALARM REMAINS ON FOR SAFETY. IV SITES X2 WNL, BOTH SALINE LOCKED. NO REPORTS OF ANXIETY AT THIS TIME, CALL LIGHT IN REACH. WILL MONITOR FOR CHANGES.
--- NOTE | 2021-12-12 06:28 | NUR ---
Vitals are complete. I&Os are complete. BP was 149/66. MAP was 87. Patient is in bed with call light in reach. Patient is wondering if he has to wear the constant pulse ox that is taped on his finger.
--- NOTE | 2021-12-12 07:02 | NUR ---
AM POTASSIUM RESULT OF 2.5. MESSAGE SENT TO MD LOJA.
--- NOTE | 2021-12-12 09:43 | NUR ---
Patient awake, a&ox4. Patient agitated this morning with cares. CIWA of 9 at this time, prn valuim 5mg po admin at this time. Patient reports he wants to discharge home with his daughter. Encouraged patient to wait to see Dr. Fitzpatrick and get his kcl/abx infusions this morning. Patient receptive to waiting to see provider. SP02 monitor removed at this time as patient declining to wear. Breakfast at bedside, pt reports he is not hungry. Loxenox non admin as patient refused with morning medications.
--- NOTE | 2021-12-12 10:45 | NUR ---
Spoke with pt's daughter Genevieve. She states pt lives in an apartment with 15 steps. He lives alone and she does not feel he can be alone. She lives in [place] and has to return to work on Wednesday. She states he has been approved for 20 hrs of cg service by the [facility] and he has cg through [facility]. I discussed with daughter, pt is threatening to go ama and I cannot hold him here. Dr. Fitzpatrick has spoken with him and requested he stay through tomorrow at least, but pt plans on leaving today. She is concerned he will begin drinking. I let her know I can oscar [facility] and they could call her and pt, but will not go in the room as he has covid. She would like this. I will also call and check about care givers through the [facility]. We again discussed he cannot stay here through next week as he is not using any 02 for his covid and not sob. He has detoxed already. Let her know I will follow up with [facility] and [facility]. Daughter plans to check out of her hotel and will return. Pt is up and down in the room without problem.
--- NOTE | 2021-12-12 10:58 | NUR ---
Updated daughter with plan of care.
--- NOTE | 2021-12-12 11:00 | NUR ---
Called [facility] and updated. They will call pt and daughter to offer assistance. Later notified by the RN, pt told [facility] to call him back in two weeks. I also called Caty Valentine from [facility] and left a message. She left a return message statin gpt does have 20 hrs per week for cg service. He has a cg through [facility]. I discussed this with the daughter and gave her [facility] [employer] brochure to call for hours she would like pt to have a cg in his home.
[2021-12-12] MEDS ORDERED: NICOTINE1 EAC2 TD (11:02)
[2021-12-12] MEDS ORDERED: DEXAMETHASONE6 MG PO (11:02)
--- NOTE | 2021-12-12 11:52 | NUR ---
Patient resting in bed, eyes closed, respirations even and non labored. Patient has no distress at this time. IV kcl infusing per provider order. Bed alarm intact. No current needs.
--- NOTE | 2021-12-12 15:32 | NUR ---
Patient sitting up in bed visiting with his daughter. Patient denies pain and or needs at this time. Personal supplies and call light within reach.
--- NOTE | 2021-12-12 18:25 | NUR ---
Patient sitting up in bed watching tv, no distress. Patient hoping to discharge here soon. Daughter at bedside visiting. No current needs. Personal supplies and call light within reach.
== END 2021-12-12 19:05 | disposition home or self-care (01) | DRG 177 ==
LOC: ED 21:00 → CCU 23:50 → MS 12-11 17:40
PROVIDERS: ADMIT Internal Medicine; ATTEND Internal Medicine
PROC: 8E0ZXY6 Isolation (ICD-10-PCS; principal; 2021-12-09)
PROC: XW033E5 Introduction of Remdesivir Anti-infective into Peripheral Vein, Percutaneous Approach, New Technology Group 5 (ICD-10-PCS; 2021-12-09)
PROC: 3E0333Z Introduction of Anti-inflammatory into Peripheral Vein, Percutaneous Approach (ICD-10-PCS; 2021-12-09)
PROC: HZ2ZZZZ Detoxification Services for Substance Abuse Treatment (ICD-10-PCS; 2021-12-09)
DX: U07.1 COVID-19 (principal); J12.82 Pneumonia due to coronavirus disease 2019; J96.01 Acute respiratory failure with hypoxia; F10.239 Alcohol dependence with withdrawal, unspecified; E87.1 Hypo-osmolality and hyponatremia; E87.6 Hypokalemia; E83.39 Other disorders of phosphorus metabolism; D69.6 Thrombocytopenia, unspecified; J44.9 Chronic obstructive pulmonary disease, unspecified; E83.42 Hypomagnesemia; I10 Essential (primary) hypertension; K21.9 Gastro-esophageal reflux disease without esophagitis; F17.210 Nicotine dependence, cigarettes, uncomplicated; Z79.899 Other long term (current) drug therapy
CPT/HCPCS: 36415; 71260; 80053; 81001; 83605; 83735; 84100; 84132; 85025; 85610; 93005; 93010; 94640; 94760; 94762; 99285-25; A9270; C9113; G0480; J0248; J0456; J1100; J1650; J3360; J3411; J3475; J3480; J7030; J7050; J7060; J8540; Q9967; U0003

== ENCOUNTER 2022-01-29 06:01 | Day surgery (SDC) | payer MEDICARE, OTHER ==
--- NOTE | 2022-01-28 16:11 | NUR ---
NADINE MEEKS NOTIFIED OF PT STATUS OF ADMISSION FOR COVID PNA IN 12/16 AND EKG CHANGES. NADINE MEEKS STATES THAT PT IS "PAST THE 6 WEEK WINDOW AND SHOULD BE OKAY FOR PROCEDURE TOMORROW."
[~2022-01-29] VITALS: Ht 170.2 cm; Wt 67.3 kg
[~2022-01-29 06:01] MED LIST changes: +DEXAMETHASONE6 MG PO; +NICOTINE1 EAC2 TD; +OMEPRAZOLE20 MG PO
--- NOTE | 2022-01-29 08:06 | NUR ---
01/29/22 0806 Sheets,Stacy 0747 PT ARRIVED TO PACU ON 6L VIA NC, VSS. PT SLIGHTLY REACTIVE AND SNORING NOTED. 0751 PT WOKE AND COUGHING. PT REORIENTED TO PACU AND DENIES PAIN. SUCTIONS USED AND SMALL AMOUNT OF CLEAR SECRETIONS NOTED. 0753 PT WOKE AND ROLLED TO BACK HOB INCREASED.
--- NOTE | 2022-01-30 12:29 | PATH ---
[facility] [address] [place], [place] [address] Signed SPECIMEN(S): A DUODENAL BIOPSY SPECIMEN(S): B ANTRUM/PYLORUS BIOPSY SPECIMEN(S): C DISTAL ESOPHAGEAL BIOPSY SPECIMEN(S): D ESOPHAGEAL BIOPSY AT 30 CM SPECIMEN SOURCE: A. DUODENAL BIOPSY B. ANTRUM/PYLORUS BIOPSY C. DISTAL ESOPHAGEAL BIOPSY D. ESOPHAGEAL BIOPSY AT 30 CM CLINICAL HISTORY: History of esophageal abnormality. DX: chronic esophagitis. FINAL PATHOLOGIC DIAGNOSIS: A. Duodenum, biopsy: - Duodenal mucosa with no histopathologic abnormality. - Negative for increased intraepithelial lymphocytes or villous blunting. - Negative for dysplasia or malignancy. B. Stomach, antrum/pylorus, biopsy: - Antral mucosa with reactive gastropathy and chronic, inactive gastritis. - Negative for Helicobacter organisms on HE stain. - Negative for dysplasia or malignancy. C. Esophagus, distal, biopsy: - Squamous mucosa with mild reactive changes. - Cardia-oxyntic type gastric mucosa with chronic, inactive gastritis. - Negative for Helicobacter organisms on HE stain. - Negative for intestinal metaplasia, dysplasia, or malignancy. D. Esophagus at 30 cm, biopsy: - Squamous mucosa with no histopathologic abnormality. - Negative for increased intraepithelial eosinophils. - Negative for intestinal metaplasia, dysplasia, or malignancy. NAL:cml:C2NR MICROSCOPIC EXAMINATION: Histologic sections of all submitted blocks are examined by light microscopy. These findings, together with the gross examination, support the pathologic diagnosis. GROSS DESCRIPTION: Four specimens are received in four containers labeled with "RO". PATIENT NAME: ANGELICA MUNOZ PATHOLOGY DATE OF : 59 REPORT #: [id number] PHYSICIAN: TOYIN DICKINSON PCP: SWETHA DE LOS SANTOS DO REPORT IS CONFIDENTIAL AND NOT TO BE RELEASED WITHOUT AUTHORIZATION [facility] [address] [place], [place] [address] Signed A. The specimen, labeled "RO, 1," and designated on the requisition "duodenum biopsy," is received in formalin and consists of two fragments of pink-salinas tissue (0.3 to 0.4 cm in greatest dimension). The specimen is submitted entirely in cassette A1. B. The specimen, labeled "RO, 2," and designated on the requisition "antrum/pylorus biopsy," is received in formalin and consists of two fragments of pink-salinas tissue (0.3 cm in greatest dimension). The specimen is submitted entirely in cassette B1. C. The specimen, labeled "RO, 3," and designated on the requisition "distal esophagus biopsy," is received in formalin and consists of six fragments of white-salinas tissue (0.1 to 0.3 cm in greatest dimension). The specimen is submitted entirely in cassette C1. D. The specimen, labeled "RO, 4," and designated on the requisition "esophageal biopsy at 30 cm," is received in formalin and consists of for five fragments of white-salinas tissue (0.2 to 0.4 cm in greatest dimension). The specimen is submitted entirely in cassette D1. AC (under the direct supervision of a pathologist) The Gross Description was prepared using a voice recognition system. The report was reviewed for accuracy; however, sound-alike word errors, addition and/or deletions may occur. If there is any question about this report, please contact Client Services. PERFORMING LABORATORY: The technical component was performed by [facility], [address] [place] [id number] (CLIA# [id number]). Professional interpretation was performed by [facility], [facility], [address] [facility] [address] [address] (CLIA# [id number]). Diagnostician: Susan Collado MD Pathologist Electronically Signed 01/30/2022 Copies: ~ PATIENT NAME: ANGELICA MUNOZ PATHOLOGY DATE OF : 59 REPORT #: [id number] PHYSICIAN: TOYIN PATHOLOGY PCP: SWETHA DE LOS SANTOS DO REPORT IS CONFIDENTIAL AND NOT TO BE RELEASED WITHOUT AUTHORIZATION
--- NOTE | 2022-01-30 13:54 | OR ---
[facility] [facility] [address] [place], [place] [address] Signed DATE OF OPERATION: 01/29/2022 SURGEON: Cecilio Hickey MD PREOPERATIVE DIAGNOSES: 1. Chronic alcoholism, in remission. 2. Esophageal dysphagia and weight loss. CT scan findings with "thickened esophagus.". POSTOPERATIVE DIAGNOSES: 1. No evidence of stricture or neoplasm; plaque-like mucosal lesion in the mid esophagus. 2. Antral gastritis and duodenitis. PROCEDURE: Esophagogastroduodenoscopy with biopsy. ANESTHESIA: Intravenous sedation, propofol infusion; Cyrus Mendoza CRNA INDICATION: This 66-year-old white man has chronic alcoholism of longstanding and has been abstinent of alcohol for about two months. He was seen by me on December 08, [address] Khris De Los Santos. He had been referred for upper endoscopy on the basis of CT scanning in May showing thickening of the esophagus with inability to swallow and underlying severe chronic alcoholism. A plan was made for upper endoscopy. Notably, the patient additionally smokes a pack of cigarettes a day. He contracted COVID disease essentially the evening after being seen in my office, was hospitalized for several days. He has since returned to the care of his daughter who lives in , [place] and who has cared for him and he has been abstinent of alcohol since that time. He is admitted at this time to undergo upper endoscopy to assess for his dysphagia issue. Notably, he has been on Prilosec 20 mg daily. The patient has had no associated hematemesis. The patient and his daughter understand the risk of upper endoscopy including but not limited to bleeding, infection, and perforation and wished to proceed. FINDINGS: There is no evidence of esophageal neoplasm or stricture. He did have superficial mucosal plaque-like lesions of the mid esophagus. A poor flap valve was noted. He did have antral gastritis and duodenitis. CLOtest was negative 20 minutes post procedure. DESCRIPTION OF PROCEDURE: The patient was brought to the surgical endoscopy suite and placed in lateral decubitus Electronically Signed By: CECILIO HICKEY MD 01/30/22 1354 PATIENT NAME: ANGELICA MUNOZ OPERATIVE REPORT DATE OF : 59 REPORT #: [id number] PHYSICIAN: CECILIO HICKEY MD PCP: KHRIS DE LOS SANTOS DO REPORT IS CONFIDENTIAL AND NOT TO BE RELEASED WITHOUT AUTHORIZATION [facility] [address] [place], [place] [address] Signed position, given intravenous sedation with propofol infusional technique by the gas appliance adjuster. A bite block was placed. An Olympus video upper endoscope was passed in the hypopharynx. The vocal cords and hypopharyngeal soft tissue appeared normal. Scope was easily advanced into the esophagus. Throughout its length, it was normal with mild chronic inflammation noted. There was no evidence of stricture or neoplasm. Scope was easily passed into the stomach, which was insufflated with air. Rugal folds were normal. The antrum had chronic inflammatory change. The pylorus was normal. Scope was passed through into the duodenum. Duodenum had chronic duodenitis and biopsies were obtained. The scope was withdrawn and biopsies were then taken of the antrum for both JAYDEN and pathologic testing. Retroflexed view was undertaken showing an effaced flap valve, no large hiatal hernia, however. There were no varices. The scope was withdrawn to the distal esophagus. Close inspection showed no sign of Santos's epithelium, stricture or neoplasm and no varices. Biopsies were taken of the distal esophagus. Further withdrawal to the mid esophagus at approximately 30 cm absolutely did show abnormalities of mucosal plaque-like lesions. This did not appear to be typical of eosinophilic esophagitis. Multiple biopsies were taken there as well. The scope was withdrawn and there were no other findings of concern. He was taken to the recovery room in good condition having suffered no complication. CONCLUDING DIAGNOSES: Chronic gastritis and duodenitis and concurrent esophagitis with plaque-like lesions in the mid esophagus. PLAN: Recommend continued abstinence from alcohol. Recommend also continued use of Prilosec 20 mg p.o. daily. We will see him back in the office in about four weeks and review his pathology reports. MD THOM Don/CHAYAL /[id number] cc: Khris De Los Santos DO Electronically Signed By: CECILIO HICKEY MD 01/30/22 1354 PATIENT NAME: ANGELICA MUNOZ OPERATIVE REPORT DATE OF : 59 REPORT #: [id number] PHYSICIAN: CECILIO HICKEY MD PCP: KHRIS DE LOS SANTOS DO REPORT IS CONFIDENTIAL AND NOT TO BE RELEASED WITHOUT AUTHORIZATION [address] [address] Signed Copies: KHRIS DE LOS SANTOS DO ~ Electronically Signed By: CECILIO HICKEY MD 01/30/22 1354 PATIENT NAME: ANGELICA MUNOZ OPERATIVE REPORT DATE OF : 59 REPORT #: [id number] PHYSICIAN: CECILIO HICKEY MD PCP: KHRIS DE LOS SANTOS DO REPORT IS CONFIDENTIAL AND NOT TO BE RELEASED WITHOUT AUTHORIZATION
== END 2022-01-29 08:30 | disposition home or self-care (01) ==
LOC: DS 06:01 → OPS 06:01
PROVIDERS: ATTEND Surgery
PROC: 0DB68ZZ Excision of Stomach, Via Natural or Artificial Opening Endoscopic (ICD-10-PCS; 2022-01-29)
PROC: 0DB58ZZ Excision of Esophagus, Via Natural or Artificial Opening Endoscopic (ICD-10-PCS; principal; 2022-01-29 07:00)
DX: R13.19 Other dysphagia (principal); K21.00 Gastro-esophageal reflux disease with esophagitis, without bleeding; R63.4 Abnormal weight loss; K29.80 Duodenitis without bleeding; K29.50 Unspecified chronic gastritis without bleeding; K22.89 Other specified disease of esophagus; F10.21 Alcohol dependence, in remission; F17.210 Nicotine dependence, cigarettes, uncomplicated; I10 Essential (primary) hypertension; Z68.23 Body mass index [BMI] 23.0-23.9, adult
CPT/HCPCS: J2704; J7121

== ENCOUNTER 2023-09-21 20:25 | Emergency (ER) | payer MEDICARE, OTHER ==
[~2023-09-21] VITALS: Ht 170.2 cm; Wt 67.2 kg
--- OUTSIDE RECORDS SUMMARY | 2023-09-21 20:32 | XMS ---
PreManage Notification: ANGELICA MUNOZ Security Terminal Gauger Events No recent Security Events currently on file CRITERIA MET - [facility] - 2 Visits in 30 Days CARE PROVIDERS Amelia De Los Santos Smoking Pipe Driller And Threader/Roll Forming Supervisor 07/25/2023-Current PHONE: [phone] SWETHA DE LOS SANTOS Internal Medicine 11/13/2019-Current PHONE: Unknown -[place]- Dentist: Air Conditioning Service Technician [facility] PHONE: [phone] Papo has no Care Guidelines for this patient. Care History Medical/Surgical 11/13/2019 [facility] - Patient is currently established with [facility]. If patient is seen in the ED during business hours. Please contact CHWs at [facility]. Care Recommendation: If this patient has had 5 or more Emergency Department visits in the last 12 months.\T\nbsp; Patient will require education on the scope and purpose of the ED as an acute care provider not a Primary Care Provider and should not be utilized for chronic conditions.\T\nbsp; These are guidelines and the provider should exercise clinical judgment when providing care. 04/04/2019 [facility] - PATIENT HAS AN APT TO ESTABLISH CARE WITH DR DE LOS SANTOS ON 04/25/19. 03/13/2019 [facility] - CHW RECEIVED- CASE MANAGEMENT CONSULT- HELP PATIENT WITH PCP SET UP. - CHW CONTACTED PATIENT- PATIENT FILLED OUT ESTRELLITA FORM WITH [facility]. - RECORDS RECEIVED ON 03/10/19- CURRENTLY WAITING ON REVIEW FROM DR LOJA TO ESTABLISH CARE. - CLINIC WILL CONTACT PATIENT WITH APT TIME AND DATE ONCE REVIEW IS COMPLETE. E.D. VISIT COUNT (12 MO.) 2 [facility] 1 [facility] TOTAL 3 NOTE: Visits indicate total known visits. 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 - Urinary Complaint 03/02/2023 15:48 [facility] TYPE: Emergency COMPLAINT: - DIZZINESS DIAGNOSES: - Alcohol abuse with intoxication, unspecified - Chronic obstructive pulmonary disease, unspecified - Dizziness and giddiness - Essential (primary) hypertension - Nicotine dependence, unspecified, uncomplicated - Other filler leaf cutter long (current) drug therapy INPATIENT VISIT TRACKING (12 MO.) 08/22/2023 17:56 [facility] TYPE: Internal Medicine DIAGNOSES: - Vesical fistula, 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
[2023-09-21 20:50] LABS: BASOPHILS 0.7 % (0-2); EOSINOPHILS 6.7 % (0-6); HEMATOCRIT 41.8 % (35.0-50.0); HEMOGLOBIN 14.4 g/dL (12.0-18.0); LYMPHOCYTES 37.6 % (24-44); MCH 32.7 (27-36); MCHC 34.5 g/dl (30-36); MCV 94.9 fl (81-99); MONOCYTES 9.8 % (0-12); NEUTROPHILS 45.2 % (39-80); PLATELET COUNT 208 K/uL (140-440); RDW 12.8 (10.5-15.0)
[2023-09-21 21:06] LABS: ALBUMIN 3.6 g/dL (3.4-5.0); ALBUMIN/GLOBULIN RATIO 0.97 (1.1-2.4); ANION GAP 11.9 (7-21); BILIRUBIN, TOTAL 0.6 ng/dL (0.2-1.0); BUN/CREATININE RATIO 14.1 (6.0-28.6); CALCIUM 8.7 mg/dL (8.5-10.1); CREATININE, SERUM 0.78 mg/dL (0.70-1.30); POTASSIUM 2.9 mmol/L (3.5-5.1); PROTEIN, TOTAL 7.3 g/dL (6.4-8.2)
[2023-09-21] MEDS ORDERED: TRANSDERM-SCOP1 EACH TD (21:47)
[2023-09-21] MEDS ORDERED: ANTIVERT25 M1 PO (21:47)
[2023-09-21] MEDS ORDERED: K-TAB ER20 MEQ PO (21:47)
[2023-09-21 22:14] VITALS: BP 141/79
--- NOTE | 2023-09-22 13:20 | EKG ---
[facility] [address] [facility] [place], [place] [address] Signed Sinus bradycardia Otherwise normal ECG When compared with ECG of 29-JAN-2022 05:27, No significant change was found Confirmed by NADIR GUADALUPE MD ([id number]) on 09/22/2023 1:20:00 PM Electronically Signed By: NADIR GUADALUPE 09/22/23 1320 PATIENT NAME: ANGELICA MUNOZ Electrocardiogram DATE OF : 59 PHYSICIAN: NADIR GUADALUPE REPORT #: [id number] REPORT IS CONFIDENTIAL AND NOT TO BE RELEASED WITHOUT AUTHORIZATION
== END 2023-09-21 22:16 | disposition home or self-care (01) ==
LOC: ED 20:25
PROVIDERS: Emergency Medicine
DX: H81.399 Other peripheral vertigo, unspecified ear (principal); E87.6 Hypokalemia; I10 Essential (primary) hypertension; J44.9 Chronic obstructive pulmonary disease, unspecified; F17.200 Nicotine dependence, unspecified, uncomplicated; Z79.899 Other long term (current) drug therapy
CPT/HCPCS: 36415; 80053; 84484; 85025; 93005; 93010; 99284-25; A9270; G0480

== ENCOUNTER 2024-05-25 16:30 | Emergency (ER) | payer MEDICARE, OTHER ==
[~2024-05-25] VITALS: Ht 170.2 cm; Wt 67.0 kg
[~2024-05-25 16:30] MED LIST changes: +ANTIVERT25 M1 PO; +K-TAB ER20 MEQ PO; +TRANSDERM-SCOP1 EACH TD
[2024-05-25] MEDS ORDERED: SODIUM CHLORIDE 0.9% 1,000 ML IV ONE (16:45)
[2024-05-25] MEDS ORDERED: ondansetron HCL 4 MG/2 ML VIAL IV ONE (16:45)
[2024-05-25 16:52] LABS: BASOPHILS 0.2 % (0-2); EOSINOPHILS 2.8 % (0-6); HEMATOCRIT 46.9 % (35.0-50.0); LYMPHOCYTES 21.7 % (24-44); MCHC 34.1 g/dl (30-36); MCV 96.9 fl (81-99); MONOCYTES 9.3 % (0-12); PLATELET COUNT 149 K/uL (140-440); RBC 4.84 M/ul (4.3-5.7); RDW 14.6 (10.5-15.0)
[2024-05-25 17:10] LABS: ALBUMIN 3.7 g/dL (3.4-5.0); ALBUMIN/GLOBULIN RATIO 0.97 (1.1-2.4); BILIRUBIN, TOTAL 0.9 ng/dL (0.2-1.0); BUN/CREATININE RATIO 12.5 (6.0-28.6); CREATININE, SERUM 0.72 mg/dL (0.70-1.30); MAGNESIUM 1.5 mg/dL (1.8-2.4); PROTEIN, TOTAL 7.5 g/dL (6.4-8.2)
[2024-05-25] MEDS ORDERED: ONDANSETRON ODT8 MG PO (17:59)
[2024-05-25] MEDS ORDERED: NALTREXONE HCL50 MG PO (17:59)
[2024-05-25] MEDS ORDERED: CHLORDIAZEPOXID25 MG PO (17:59)
[2024-05-25 18:10] VITALS: BP 152/84
== END 2024-05-25 18:10 | disposition home or self-care (01) ==
LOC: ED 16:30
PROVIDERS: Emergency Medicine
DX: F10.10 Alcohol abuse, uncomplicated (principal); J44.9 Chronic obstructive pulmonary disease, unspecified; I10 Essential (primary) hypertension; E87.6 Hypokalemia; F17.200 Nicotine dependence, unspecified, uncomplicated; Z79.899 Other long term (current) drug therapy
CPT/HCPCS: 36415; 80053; 83690; 83735; 85025; 96374; 99284-25; G0480; J2405; J7030

== ENCOUNTER 2024-10-28 19:32 | Emergency (ER) | payer MEDICARE, OTHER ==
[~2024-10-28] VITALS: Ht 170.2 cm; Wt 65.8 kg
[~2024-10-28 19:32] MED LIST changes: +NALTREXONE HCL50 MG PO
[2024-10-28 19:58] LABS: BASOPHILS 0.4 % (0-2); EOSINOPHILS 7.1 % (0-6); HEMATOCRIT 46.2 % (35.0-50.0); LYMPHOCYTES 30.7 % (24-44); MCH 32.9 (27-36); MCHC 34.6 g/dl (30-36); MCV 95.2 fl (81-99); MONOCYTES 13.3 % (0-12); NEUTROPHILS 48.5 % (39-80); PLATELET COUNT 136 K/uL (140-440); RBC 4.86 M/ul (4.3-5.7); RDW 14.6 (10.5-15.0)
[2024-10-28] MEDS ORDERED: MECLIZINE HCL 25 MG TAB PO ONE (20:00)
[2024-10-28] MEDS ORDERED: SCOPOLAMINE 1 MG/3 DAYS PATCH 1 EACH TDSY TD ONE (20:00)
[2024-10-28 20:17] LABS: ALBUMIN 3.4 g/dL (3.4-5.0); ALBUMIN/GLOBULIN RATIO 0.85 (1.1-2.4); ANION GAP 13.2 (7-21); BILIRUBIN, TOTAL 0.9 ng/dL (0.2-1.0); BUN/CREATININE RATIO 15.78 (6.0-28.6); CALCIUM 8.7 mg/dL (8.5-10.1); CREATININE, SERUM 0.76 mg/dL (0.70-1.30); POTASSIUM 3.2 mmol/L (3.5-5.1); PROTEIN, TOTAL 7.4 g/dL (6.4-8.2)
[2024-10-28] MEDS ORDERED: POTASSIUM CHLORIDE 10 MEQ TABCR PO ONE (20:30)
[2024-10-28 21:06] VITALS: BP 146/81
== END 2024-10-28 21:06 | disposition home or self-care (01) ==
LOC: ED 19:32
PROVIDERS: Emergency Medicine
DX: H81.399 Other peripheral vertigo, unspecified ear (principal); E87.6 Hypokalemia; I10 Essential (primary) hypertension; J44.9 Chronic obstructive pulmonary disease, unspecified; F17.200 Nicotine dependence, unspecified, uncomplicated; Z79.899 Other long term (current) drug therapy
CPT/HCPCS: 36415; 80053; 85025; 99284; A9270